=== PATIENT | male | born 1970 | race Caucasian/White ===

== ENCOUNTER → 2023-07-19 | Outpatient (CLI) | payer MEDICAID ==
--- NOTE | 2023-07-19 15:04 | XRAY Report ---
PROCEDURE: Knee 3 View RT INDICATIONS: RIGHT KNEE PAIN TECHNIQUE: 3 views of the knee and one view of the left knee were acquired. COMPARISON: None. FINDINGS: Bones: No acute fractures or dislocations. No suspicious bony lesions. Soft tissues: No knee joint effusion. No suspicious soft tissue calcifications or masses. IMPRESSION: No acute osseous abnormality. If symptoms persist or there is continued clinical concern, further raz luation with MRI or CT may be helpful. Reviewed by: Samy Hall MD on 07/19/2023 3:02 PM PST Approved by: Samy Hall MD on 07/19/2023 3:02 PM PST Station ID: [id number]
== END ==
LOC: DI.WOS 08:00
PROVIDERS: ATTEND Physician Assistant Surgical
DX: M25.561 Pain in right knee (principal)

== ENCOUNTER 2023-08-01 09:20 | Outpatient (CLI) | payer MEDICAID ==
--- NOTE | 2023-08-01 14:33 | MRI Report ---
PROCEDURE: KNEE WO - RT INDICATIONS: MENISCUS DERANGEMENTS TECHNIQUE: Noncontrast sagittal PD fast spin echo and T2 fast spin echo with fat saturation, sagittal 3-D spoile d GE with fat saturation; coronal T1 spin echo and PD fast spin echo with fat saturation, and axial P D fast spin echo with fat saturation through the knee. COMPARISON: None. FINDINGS: Image quality: Excellent. Anterior cruciate ligament: Intact. Posterior cruciate ligament: Intact. Medial collateral ligament: Intact. Lateral collateral ligament: Intact. Medial meniscus: Intact. Lateral meniscus: Intact. Medial and lateral tendons: The semimembranosus tendon insertions appear intact. Visualized portion s of the pes anserinus tendons appear normal. The popliteus tendon appears intact. Iliotibial band appears normal. Anterior structures: The patellar tendon and the distal quadriceps tendon appear intact. No patellar subluxation. No femoral trochlear dysplasia or ventral trochlear prominence. No edema in the infra patellar fat pad. Bones: No acute trabecular bone injury or fracture. Medial femorotibial cartilage: Intact. Lateral femorotibial cartilage: Intact. Patellofemoral cartilage: High-grade versus full-thickness cartilage irregularity is seen at the lat eral patellar facet with subchondral cystic changes and subchondral edema. Soft tissues: There is a small joint effusion. There is no medial popliteal cyst. The musculature s urrounding the knee is normal in bulk. IMPRESSION: 1.No meniscal tear is seen. No acute trabecular bone injury. Cruciate and collateral ligaments are in tact. 2.Focal high-grade versus full-thickness cartilage irregularity at the lateral patellar facet with fo leslee subchondral cystic changes and subchondral edema. 3.Small joint effusion. Reviewed by: Samy Hall MD on 08/01/2023 2:31 PM PST Approved by: Samy Hall MD on 08/01/2023 2:31 PM PST Station ID: [id number]
== END 2023-08-01 09:21 | disposition home or self-care (01) ==
LOC: DI 09:20
PROVIDERS: ATTEND Physician Assistant Surgical
DX: M25.461 Effusion, right knee (principal); R93.6 Abnormal findings on diagnostic imaging of limbs